=== PATIENT | female | born 1975 | race Native Hawaiian/Other Pacific Islander ===

== ENCOUNTER 2016-11-02 11:25 | Emergency (ER) | payer OTHER ==
[~2016-11-02] VITALS: Ht 177.8 cm; Wt 72.6 kg
[2016-11-02 11:25] VITALS: TEMP 98
[~2016-11-02 11:25] MED LIST: AMBIEN5 MG PO; Z-PAK PO
[2016-11-02 13:59] VITALS: BP 148/82
== END 2016-11-02 13:54 | disposition home or self-care (01) ==
LOC: ED 11:25
DX: S20.211A Contusion of right front wall of thorax, initial encounter (principal); S16.1XXA Strain of muscle, fascia and tendon at neck level, initial encounter; W03.XXXA Other fall on same level due to collision with another person, initial encounter
CPT/HCPCS: 99282